=== PATIENT | male | born 1965 | race Caucasian/White ===

== ENCOUNTER 2021-09-07 04:14 | Day surgery (SDC) | payer OTHER ==
[2021-08-29 11:06] VITALS: BMI 31.3
[2021-09-07] MEDS ORDERED: DEXMEDETOMIDINE HCL 200 MCG/2 ML IVPB ONE (14:51)
[2021-09-07] MEDS ORDERED: ACETAMINOPHEN INJECTION 100 ML IVPB ONE (14:52)
[2021-09-07] MEDS ORDERED: MIDAZOLAM HCL 2 MG/2 ML SINGLE DOSE VIAL ONE (14:56)
[2021-09-07 17:11] VITALS: TEMP 98
[2021-09-07 17:54] VITALS: BP 135/80; PULSE 80
== END 2021-09-07 17:50 | disposition home or self-care (01) ==
LOC: JASU-SURG 04:14
PROVIDERS: ATTEND Urology
PROC: 0TN68ZZ Release Right Ureter, Via Natural or Artificial Opening Endoscopic (ICD-10-PCS; 2021-09-07)
PROC: 0T9680Z Drainage of Right Ureter with Drainage Device, Via Natural or Artificial Opening Endoscopic (ICD-10-PCS; principal; 2021-09-07 13:30)
DX: N13.0 Hydronephrosis with ureteropelvic junction obstruction (principal); N13.1 Hydronephrosis with ureteral stricture, not elsewhere classified
CPT/HCPCS: 76000-TC-FY; 88300-TC; 94760; J0131

== ENCOUNTER → 2021-11-08 | Day surgery (SDC) | payer OTHER ==
[2021-11-05 17:53] VITALS: BMI 31.3
[~2021-11-08] MED LIST: LACTATED RINGERS SOLUTION 1,000 ML IV SCH; LIDOCAINE HCL 2% JELLY 10 ML CARTRIDGE ONE; MIDAZOLAM HCL 2 MG/2 ML SINGLE DOSE VIAL ONE; ONDANSETRON 4 MG/2 ML VIAL IVPUSH PRN; PROPOFOL 20 ML ONE; ceFAZolin SODIUM 1 GM VIAL IVPB ONE
[2021-11-08 15:38] VITALS: BP 142/84; PULSE 75; TEMP 97.2
== END | disposition home or self-care (01) ==
LOC: JASU-SURG 05:06
PROVIDERS: ATTEND Urology
PROC: 0TPD8DZ Removal of Intraluminal Device from Urethra, Via Natural or Artificial Opening Endoscopic (ICD-10-PCS; principal; 2021-11-08 13:00)
DX: N13.30 Unspecified hydronephrosis (principal); E11.9 Type 2 diabetes mellitus without complications; I10 Essential (primary) hypertension
CPT/HCPCS: 94760